=== PATIENT | male | born 1965 | race Caucasian/White ===

== ENCOUNTER 2016-06-14 16:59 | Inpatient (IN) | payer OTHER ==
[~2016-06-14] VITALS: Ht 182.9 cm; Wt 213.2 kg
[2016-06-14 22:32] LABS: HEMOGLOBIN 15.2 gm/dl (14.0-17.5); RED BLOOD COUNT 5.03 M/UL (4.20-5.50); WHITE BLOOD COUNT 15.5 K/UL (4.5-11.0)
[2016-06-14 22:53] LABS: BUN/CREATININE RATIO 11 (0-10)
[2016-06-15 05:42] LABS: HEMOGLOBIN 15.4 gm/dl (14.0-17.5); RED BLOOD COUNT 5.02 M/UL (4.20-5.50); WHITE BLOOD COUNT 14.8 K/UL (4.5-11.0)
[2016-06-15] MEDS ORDERED: LEVAQUIN500 MG PO (14:34)
[2016-06-15] MEDS ORDERED: MEDROL DOSEPAK 24 MG PO (14:34)
[2016-06-15] MEDS ORDERED: SYMBICORT 80-41 INHA INH (14:35)
[2016-06-15] MEDS ORDERED: IPRAT-ALBUT 0.5-3 ML INH (14:38)
[2016-06-15] MEDS ORDERED: PROVENTIL HFA 61 INH INH (14:41)
== END 2016-06-15 16:24 | disposition home or self-care (01) | DRG 191 ==
LOC: ER1 16:59 → ZEROF 23:00 → M/S 23:00
PROVIDERS: Emergency Medicine; ADMIT Internal Medicine
DX: J44.0 Chronic obstructive pulmonary disease with (acute) lower respiratory infection (principal); E66.2 Morbid (severe) obesity with alveolar hypoventilation; J96.11 Chronic respiratory failure with hypoxia; J20.9 Acute bronchitis, unspecified; J44.1 Chronic obstructive pulmonary disease with (acute) exacerbation; F17.210 Nicotine dependence, cigarettes, uncomplicated; Z68.44 Body mass index [BMI] 60.0-69.9, adult
CPT/HCPCS: 36415; 36600; 71010; 80053; 82550; 82553; 82803; 83036; 83874; 83880; 84443; 84484; 85025; 85027; 87040; 93005; 94640; 94664; 96372; 96374; 96375; 99285; J1650; J1956; J2920; J2930

== ENCOUNTER → 2016-07-26 | Outpatient (CLI) | payer OTHER ==
[~2016-07-26] MED LIST: IPRAT-ALBUT 0.5-3 ML INH; LEVAQUIN500 MG PO; MEDROL DOSEPAK 24 MG PO; PROVENTIL HFA 61 INH INH; SYMBICORT 80-41 INHA INH
== END ==
LOC: HEART 5 10:46
DX: J44.9 Chronic obstructive pulmonary disease, unspecified (principal)
CPT/HCPCS: 71020-FX; 94060; 94729

== ENCOUNTER → 2016-07-28 | Outpatient (CLI) | payer OTHER | LOC: SLEEP 21:30 | DX: G47.33 Obstructive sleep apnea (adult) (pediatric) (principal) | CPT/HCPCS: 95811 ==